=== PATIENT | male | born 1980 | race Caucasian/White ===

== ENCOUNTER 2019-03-17 07:53 | Day surgery (SDC) | payer BC ==
[2019-03-12 16:11] LABS: CLARITY,URINE CLEAR (Clear); COLOR,URINE STRAW (Yellow); GLUCOSE, URINE NEGATIVE (Neg); KETONES,URINE NEGATIVE (Neg); LEUKOCYTE ESTERASE ,URINE NEGATIVE (Neg); NITRITES, URINE NEGATIVE (Neg); OCCULT BLOOD,URINE NEGATIVE (Neg); PROTEIN,URINE NEGATIVE (Neg); UROBILINOGEN,URINE 0.2 E.U/dL (0.2-1.0)
[2019-03-12 16:12] LABS: UA COLLECTION TYPE CLN CATCH MIDSTREAM
[2019-03-12 16:14] LABS: BASOPHILS # (AUTO) 0.1 X10'3 (0-0.2); EOSINOPHILS # (AUTO) 0.3 X10'3 (0-0.9); EOSINOPHILS % (AUTO) 4.4 % (0-6); LYMPHOCYTES # (AUTO) 2.1 X10'3 (1.1-4.8); LYMPHOCYTES % (AUTO) 32.5 % (21-51); MEAN CORPUSCULAR HEMOGLOBIN 32.8 PG (27.0-31.0); MEAN CORPUSCULAR HGB CONC 34.7 g/dL (33.0-36.5); MEAN CORPUSCULAR VOLUME 94.6 FL (78-98); MEAN PLATELET VOLUME 9.3 FL (7.4-10.4); MONOCYTES # (AUTO) 0.5 X10'3 (0-0.9); MONOCYTES % (AUTO) 7.9 % (2-12); NEUTROPHILS # (AUTO) 3.4 X10'3 (1.8-7.7); NEUTROPHILS % (AUTO) 54.2 % (42-75); PRE OP HEMATOCRIT 43.3 % (42.0-52.0); PRE OP PLATELET COUNT 217 X10'3 (140-440); RED BLOOD COUNT 4.58 X10'6 (4.70-6.10); RED CELL DISTRIBUTION WIDTH 13.4 % (11.5-14.5)
[2019-03-12 16:37] LABS: ALBUMIN 4.2 G/DL (3.4-5.0); ALBUMIN/GLOBULIN RATIO 1.4 (1.1-1.5); ALKALINE PHOSPHATASE 68 IU/L (46-116); BLOOD UREA NITROGEN 16 MG/DL (7-18); BUN/CREATININE RATIO 16.8 (5.4-32.0); CALCIUM 8.5 MG/DL (8.5-10.1); CHLORIDE 108 MMOL/L (99-107); CREATININE 0.95 MG/DL (0.60-1.10); PRE OP ALT 42 U/L (30-65); PRE OP ANION GAP 9 (8-16); PRE OP AST 37 U/L (10-37); PRE OP BILIRUB, TOTAL 0.5 MG/DL (0.0-1.0); PRE OP GLUCOSE 81 MG/DL (70-104); PRE OP POTASSIUM 4.2 MMOL/L (3.4-5.1); PRE OP SODIUM 144 MMOL/L (135-145); TOTAL CARBON DIOXIDE 26.8 MMOL/L (24-32); TOTAL PROTEIN 7.1 G/DL (6.4-8.2); eGFR 89 ML/MIN
[2019-03-17] VITALS (23 sets, daily range): BP systolic 98–145; BP diastolic 50–94
[~2019-03-17] VITALS: Ht 180.3 cm; Wt 94.0 kg
[~2019-03-17 07:53] MED LIST: NO HOME MEDS; cefazolin/dext.iso 2gm/100ml 100 ML IV ONE; famotidine 10mg tablet PO ONE; ringers solution, lacted 1,000 ML IV SCH
[2019-03-17] MEDS ORDERED: acetaminophen 325mg tablet PO STA (12:56)
[2019-03-17] MEDS ORDERED: proCHLORperazine 10 MG/2 ml inj IV PRN ×2 (13:15→14:20)
[2019-03-17] MEDS ORDERED: ringers solution, lacted 1,000 ML IV SCH ×2 (13:15→14:20)
[2019-03-17] MEDS ORDERED: ketorolac trometh. 30mg/ml inj. IV ONE ×2 (13:15→14:20)
[2019-03-17] MEDS ORDERED: ondansetron/PF 4mg/2ml inj IV PRN ×2 (13:15→14:20)
[2019-03-17] MEDS ORDERED: meperidine/PF 25mg/ml syringe IV PRN ×5 (13:15→14:20)
[2019-03-17] MEDS ORDERED: morphine 4 MG/ML inj SYRINge IV PRN ×4 (13:15→14:20)
[2019-03-17] MEDS ORDERED: BUPIVAcaine/PF 2.5 mg/ml (0.25%) 30ml vial ONE (13:25)
[2019-03-17] MEDS ORDERED: ceFAZolin 1000mg inj ONE (13:25)
[2019-03-17] MEDS ORDERED: acetaminophen 1000 MG/100ml vial IV ONE (13:45)
[2019-03-17] MEDS ORDERED: sevoflurane 250ml liquid IH ONE (13:45)
[2019-03-17] MEDS ORDERED: neostigmine methylsulfate 1 MG/ML 10ml vial ONE ×2 (13:45→15:29)
[2019-03-17] MEDS ORDERED: midazolam 2 mg/2 ml injection ONE (13:53)
[2019-03-17] MEDS ORDERED: fentaNYL /PF 50mcg/ml 5ml ampule ONE (13:56)
[2019-03-17] MEDS ORDERED: propofol inj 20 ML IV ONE (14:02)
[2019-03-17] MEDS ORDERED: LIDOcaine 2% (20mg/ml) 5ml vial ONE (14:02)
[2019-03-17] MEDS ORDERED: rocuronium 10mg/ml inj IV ONE (14:02)
[2019-03-17] MEDS ORDERED: ondansetron/PF 4mg/2ml inj ONE (14:26)
[2019-03-17] MEDS ORDERED: dexamethasone sod phosphate 4mg/ml inj. ONE (14:26)
[2019-03-17] MEDS ORDERED: ePHEDrine 50MG/ML INJ. ONE (14:32)
[2019-03-17] MEDS ORDERED: morphine 10mg/ml inj. ONE (15:03)
[2019-03-17] MEDS ORDERED: bacitracin 15gm ointment TP ONE (15:17)
[2019-03-17] MEDS ORDERED: glycopyrrolate 0.2mg/ml inj ONE (15:29)
--- NOTE | 2019-03-17 15:38 | NUR ---
Received from [place] via [facility], accompanied by Anesthesiologist DR HARRIS and report given by Anesthesiolgist. PATIENT DROWSY BUT AWAKENS EASILY, STATES PAIN LEVEL OF 0. ABD SOFT WITH COTTON BALL AND LARGE BANDAID TO UMBILICUS AND LARGE BANDAID X3, ALL DRESSINGS CLEAN DRY AND INTACT. 20 GUAGE PIV LEFT AC PATENT AND RUNNING LR AT 100 ML/HR.SKIN PINK AND WARM, MOVES ALL EXTREMITIES, VITALS WNL.
[2019-03-17] MEDS: meperidine/PF 25mg/ml syringe IV PRN ×2 (16:08→17:21)
--- NOTE | 2019-03-17 19:08 | NUR ---
PTAWAKE ALERT WITH A PAIN LEVEL OF 5. VITALS WNL. UNABLE TO VOID, DR NOBLES CALLED AND MADE AWARE, DR SAID PT CAN GO HOME WITH OUT VOIDING. PIV R AC DC/D CATH TIP INTACT. ABD SOFT, SKIN PINK AND WARM, DISCHARGE INSTRUCTIONS GIVEN TO PT AND FAMILY MEMBER, VERBALIZED UNDERSTANDING.
== END 2019-03-17 19:08 | disposition home or self-care (01) ==
LOC: PAS 07:53
PROVIDERS: ATTEND Surgery
DX: K42.9 Umbilical hernia without obstruction or gangrene (principal); Z80.3 Family history of malignant neoplasm of breast; I10 Essential (primary) hypertension; Z87.891 Personal history of nicotine dependence
CPT/HCPCS: 36415; 49652; 80053; 81003; 82948; 85025; C1758; C1781; J0131; J0690; J0780; J1100; J1885; J2001; J2175; J2250; J2270; J2405; J2704; J2710; J3010; J3490; J7120; A4215; A4618; A6449; A7000

== ENCOUNTER 2019-08-25 11:59 | Emergency (ER) | payer SELFPAY ==
[~2019-08-25] VITALS: Ht 180.3 cm; Wt 86.4 kg
[~2019-08-25 11:59] MED LIST changes: -cefazolin/dext.iso 2gm/100ml 100 ML IV ONE; -famotidine 10mg tablet PO ONE; -ringers solution, lacted 1,000 ML IV SCH
[2019-08-25] MEDS ORDERED: LIDOcaine 1% W/epiNEPHrine 1:200,000 10ml vial IJ ONE (13:30)
[2019-08-25 14:11] VITALS: BP 125/84
== END 2019-08-25 14:14 | disposition home or self-care (01) ==
LOC: ER 11:59
DX: S61.210A Laceration without foreign body of right index finger without damage to nail, initial encounter (principal); W26.0XXA Contact with knife, initial encounter; Y93.89 Activity, other specified; Y92.89 Other specified places as the place of occurrence of the external cause; Y99.8 Other external cause status
CPT/HCPCS: 12002; 99282

== ENCOUNTER 2020-09-28 16:26 | Emergency (ER) | payer OTHER ==
[~2020-09-28] VITALS: Ht 180.3 cm; Wt 95.5 kg
[2020-09-28 17:05] VITALS: BP 114/77
[2020-09-28] MEDS ORDERED: PRED20TA PO (18:00)
[2020-09-28] MEDS ORDERED: CEPH250T PO (18:00)
== END 2020-09-28 18:12 | disposition home or self-care (01) ==
LOC: ER 16:28
DX: T63.301A Toxic effect of unspecified spider venom, accidental (unintentional), initial encounter (principal); Y92.89 Other specified places as the place of occurrence of the external cause
CPT/HCPCS: 99283